=== PATIENT | female | born 2000 | race Caucasian/White ===

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

== ENCOUNTER → 2020-12-13 09:37 | Outpatient (BNVA) | payer MEDICAID, SELFPAY | PROVIDERS: Family Provider Nurse Practitioner; PCP Nurse Practitioner Family; Visit Provider Nurse Practitioner Family | DX: R22.31 Localized swelling, mass and lump, right upper limb (principal) | CPT/HCPCS: 73110 ==

== ENCOUNTER 2021-04-27 19:23 | Emergency (ER) | payer MEDICAID, SELFPAY ==
[2021-04-27 19:34] VITALS: BP 117/80; PULSE 109; RESP 16; TEMP 37; O2SAT 98
--- NOTE | 2021-04-27 19:48 | W.ED.SOB ---
Documented by User: FEDE Carroll 04/27/21 20:48 HPI - SOB/Dyspnea General: Chief Complaint: Shortness of Breath/Dyspnea Stated Complaint: Coughing, SOB, chest tightens up Time Seen by Provider: 04/27/21 19:47 History of Present Illness: HPI Narrative: Patient reports illness for the last 2 weeks. Patient has been treated with steroids, steroid inhaler, and albuterol along with a course of antibiotics. Patient has completed both the steroids and antibiotics but continues on her inhalers. Patient appears well. Patient appears no acute distress. Patient states that she continues to have episodes of coughing. Review of Systems General: Reports: 10 or more systems reviewed and unremarkable except in HPI and below Resp: Reports: non-productive cough PFSH ED PFSH: Social History Smoking and tobacco status: never smoked Alcohol intake: never History of recent travel: No Female Reproductive History: Date of last menstrual period: 10/05/19 Physical Exam Const: COMMON NORMALS: no acute distress and patient oriented x3 GENERAL APPEARANCE: cooperative HENMT: COMMON NORMALS: normocephalic, TM's normal bilaterally and Normal external nose present HEAD & SCALP: normal to inspection and normocephalic NOSE: Normal external nose present TYMPANIC MEMBRANE: TM's normal bilaterally MOUTH: Normal oral and palatal mucosa present THROAT: posterior oropharynx normal Eye: GENERAL EYE: appearance normal, both eyes and all related structures Neck/C-Spine: COMMON NORMALS: full ROM Lymph: LYMPHATIC: no lymphadenopathy noted Chest: COMMONS NORMALS: normal inspection of the chest Resp: COMMON NORMALS: normal respiratory effort and clear to auscultation bilaterally EFFORT & INSPECTION: Yes able to speak in complete sentences AUSCULTATION: clear to auscultation bilaterally Cardio: COMMON NORMALS: regular rate and regular rhythm RATE: regular rate RHYTHM: regular rhythm GI: COMMON NORMALS: non-tender Back/Pelvis: COMMON NORMALS: thoracic and lumbar spine normal to inspection Extremity: COMMON NORMALS: normal to inspection Neuro: COMMON NORMALS: patient oriented x3 and moves all extremities Psych: COMMON NORMALS: mental status grossly normal and cooperative Skin: COMMON NORMALS: no rashes or lesions noted GENERAL SKIN EXAM: no rashes or lesions noted Course Vital Signs: Vital signs: Vital Signs Temperature 98.6 F 04/27/21 19:34 Pulse Rate 118 H 04/27/21 20:30 Respiratory Rate 18 04/27/21 20:30 Blood Pressure 117/82 04/27/21 20:30 Pulse Oximetry 97 04/27/21 20:30 MDM - SOB/Dyspnea MDM Narrative: Medical decision making narrative: Patient comes in today for complaints of illness for last 2 weeks. Patient has been treated with steroids, antibiotics, and inhalers. On exam patient appears no acute distress. Patient appears well. Lungs are clear to auscultation. Differential diagnosis includes pneumonia, post viral cough, asthma. Chest x-ray was unremarkable. Believe the patient probably has post viral cough. Patient can continue with albuterol as needed in the steroid inhaler twice a day. Encourage plenty of fluids and follow-up with primary care in 2 weeks for recheck. Return to the ER for worsening symptoms or new concerns. Discharge Plan Discharge Patient Disposition: Home Clinical Impression: Bronchitis, Post-viral cough syndrome Condition: Stable Prescriptions: No Action amoxicillin 500 mg capsule 500 mg PO TID 10 Days Qty: 30 RF: 0 methylprednisolone [Medrol (Myles)] 4 mg tablets,dose pack See Rx Instructions PO PER PKG DIR Qty: 21 RF: 0 albuterol sulfate [ProAir HFA] 90 mcg/actuation HFA aerosol inhaler 2 puff inhalation QID PRN (Reason: shortness of breath or wheezing) Qty: 8.5 RF: 6 budesonide-formoterol [Symbicort] 160-4.5 mcg/actuation HFA aerosol inhaler 2 puff inhalation Q12H Qty: 10.2 RF: 6 prednisone 10 mg tablets,dose pack See Rx Instructions PO PER PKG DIR Qty: 21 RF: 0 28-800 mg-mcg Tablet 1 tab PO DAILY RF: 0 ibuprofen 800 mg Tablet 800 mg PO TID Qty: 45 RF: 0 Discharge Orders: Discharge ED (Routine); Ordered 04/27/21 Ordered By: Jorge A Solorzano Discharge Diet: Usual diet Discharge Activity: Increase activity as tolerated Patient Instructions: Acute Bronchitis (ED), Opioid Safety Activity Restrictions/Additional Instructions: Continue with inhalers as directed. Use albuterol as needed. Use the other inhaler routinely twice a day. Drink plenty of water with medication. Use acetaminophen or ibuprofen for discomfort. Make sure to rinse mouth thoroughly after the use of inhalers. Follow-up with primary care in 3 to 5 days for recheck. Return to the emergency department for new concerns or worsening symptoms. Coding Level of Care Code ED Baggage Inspector for Chg Fwd Exam Comprehensive Documented by User: Johnathan Hollins, 04/27/21 22:46 HPI - SOB/Dyspnea General: Chief Complaint: Shortness of Breath/Dyspnea Stated Complaint: Coughing, SOB, chest tightens up Time Seen by Provider: 04/27/21 19:47 PFSH ED PFSH: Social History Smoking and tobacco status: never smoked Alcohol intake: never History of recent travel: No Course Vital Signs: Vital signs: Vital Signs Temperature 98.6 F 04/27/21 19:34 Pulse Rate 118 H 04/27/21 20:30 Respiratory Rate 18 04/27/21 20:30 Blood Pressure 117/82 04/27/21 20:30 Pulse Oximetry 97 04/27/21 20:30 MDM - SOB/Dyspnea MDM Narrative: Medical decision making narrative: This patient was originally seen by FEDE Ruiz. I agree with his history, evaluation, and treatment. Discharge Plan Discharge Patient Disposition: Home Clinical Impression: Bronchitis, Post-viral cough syndrome Condition: Stable Prescriptions: No Action amoxicillin 500 mg capsule 500 mg PO TID 10 Days Qty: 30 RF: 0 methylprednisolone [Medrol (Myles)] 4 mg tablets,dose pack See Rx Instructions PO PER PKG DIR Qty: 21 RF: 0 albuterol sulfate [ProAir HFA] 90 mcg/actuation HFA aerosol inhaler 2 puff inhalation QID PRN (Reason: shortness of breath or wheezing) Qty: 8.5 RF: 6 budesonide-formoterol [Symbicort] 160-4.5 mcg/actuation HFA aerosol inhaler 2 puff inhalation Q12H Qty: 10.2 RF: 6 prednisone 10 mg tablets,dose pack See Rx Instructions PO PER PKG DIR Qty: 21 RF: 0 28-800 mg-mcg Tablet 1 tab PO DAILY RF: 0 ibuprofen 800 mg Tablet 800 mg PO TID Qty: 45 RF: 0 Discharge Orders: Discharge ED (Routine); Ordered 04/27/21 Ordered By: Jorge A Solorzano Discharge Diet: Usual diet Discharge Activity: Increase activity as tolerated Patient Instructions: Acute Bronchitis (ED), Opioid Safety Activity Restrictions/Additional Instructions: Continue with inhalers as directed. Use albuterol as needed. Use the other inhaler routinely twice a day. Drink plenty of water with medication. Use acetaminophen or ibuprofen for discomfort. Make sure to rinse mouth thoroughly after the use of inhalers. Follow-up with primary care in 3 to 5 days for recheck. Return to the emergency department for new concerns or worsening symptoms. Coding Level of Care Code ED Baggage Inspector for Samanta Raya Exam Comprehensive
--- NOTE | 2021-04-27 19:57 | XRR_ITS ---
PROCEDURE INFORMATION: Exam: XR Chest Exam date and time: 04/27/2021 7:57 PM Age: 20 years old Clinical indication: Cough; Additional info: Cough, congestion TECHNIQUE: Imaging protocol: XR of the chest. Views: 1 view. COMPARISON: No relevant prior studies available. FINDINGS: Lungs: Mild ground-glass opacity suspected in the left lung base. The right lung is clear. Pleural spaces: Unremarkable. No pleural effusion. No pneumothorax. Heart/Mediastinum: Unremarkable. No cardiomegaly. Bones/joints: Unremarkable. XR/XR chest 1V portable [id number] IMPRESSION: Suspected mild ground-glass opacity in the left base could represent pneumonia. Radiation Dose CTDIVOL = (mGy): DLP = (mGy-cm)
[2021-04-27 20:30] VITALS: BP 117/82; PULSE 118; RESP 18; O2SAT 97
== END 2021-04-27 20:59 | disposition home or self-care (01) ==
PROVIDERS: Emergency Provider Nurse Practitioner Family
DX: J40 Bronchitis, not specified as acute or chronic (principal); G93.3 Postviral and related fatigue syndromes
CPT/HCPCS: 71045; 99282

== ENCOUNTER 2021-06-22 00:59 | Emergency (ER) | payer MEDICAID, SELFPAY ==
[2021-06-22 01:20] VITALS: BP 114/75; PULSE 61; RESP 18; TEMP 36.8; O2SAT 97; BMI 26.6
[2021-06-22 02:28] LABS: Urine Appearance Clear (CLEAR); Urine Color Orange (Yellow)
[2021-06-22 02:29] LABS: Add Urine Microscopic? YES
[2021-06-22 02:31] LABS: RBC Urine 25-40 /hpf (0-2)
[2021-06-22 02:32] LABS: Add Urine Culture? Yes; Bacteria Urine 4+ /hpf; WBC Urine >100 /hpf (0-5)
[2021-06-22 03:16] VITALS: RESP 18
[2021-06-22] MEDS: oxyCODONE-APAP 5-325 mg Tablet 2 TAB PO (03:16)
[2021-06-22] MEDS: sulfamethoxazole-trimeth DS 160-800 mg Tablet 1 TAB PO (03:17)
[2021-06-22 03:18] VITALS: RESP 18
--- NOTE | 2021-06-22 08:01 | ED_ITS ---
HPI - Female Genitourinary General: Chief complaint: Urogenital-Female Stated complaint: UTI Time Seen by Provider: 06/22/21 02:41 Source: patient History of Present Illness: 20-year-old female patient complains of a few days of dysuria, low back pain, now stretching up into her left flank. She denies fever vomiting. MD elicited complaint: dysuria, UTI , back pain and flank pain Onset (ago): day(s) Location of symptoms: suprapubic, low back and flank Severity: moderate Quality of pain: cramping and stabbing Consistency: constant Vaginal discharge: none Vaginal bleeding: none and other (Finished her period yesterday ) Urinary symptoms: Difficulty Urinating, Dysuria, Flank Pain and Frequency Relieving factors: none Associated symptoms: Reports abdominal pain; Deny short of breath, fevers/chills, headache(s), nausea, vaginal bleeding or vaginal discharge Date of Last Menstrual Period: 06/16/21 Review of Systems Const: Denies: fever(s) or chills Card: Denies: chest pain Resp: Denies: dyspnea GI: Reports: abdominal pain; Denies: nausea, vomiting or diarrhea : Reports: flank pain; Denies: vaginal discharge Musc: Reports: back pain Neuro: Denies: headache(s) PFSH ED PFSH: Social History Smoking and tobacco status: never smoked Alcohol intake: never History of recent travel: No Female Reproductive History: Date of last menstrual period: 06/16/21 Physical Exam Const: COMMON NORMALS: no acute distress GENERAL APPEARANCE: cooperative and comfortable HENMT: COMMON NORMALS: normocephalic HEAD & SCALP: normocephalic FACE & SINUS: normal facial exam Eye: COMMON NORMALS: Equal, round and reactive pupils present and EOMs intact bilaterally PUPIL: Yes Equal, round and reactive pupils present Resp: COMMON NORMALS: normal respiratory effort, No use of accessory muscles and clear to auscultation bilaterally AUSCULTATION: clear to auscultation bilaterally Cardio: COMMON NORMALS: regular rate and regular rhythm RATE: regular rate RHYTHM: regular rhythm GI: COMMON NORMALS: Normal to inspection, nondistended, normoactive bowel sounds present and Soft to palpation PALPATION: Yes Soft to palpation : BLADDER/KIDNEY EXAM: Yes CVA tenderness on the left SPECULUM EXAM - VAGINA: No vaginal bleeding OB/EXTERNAL & SPECULUM: No vaginal bleeding Back/Pelvis: GENERAL BACK: Yes CVA tenderness Neuro: COLIN COMA SCALE: document [facility]CS findings [place] coma scale eye opening: Spontaneous [place] coma scale verbal response: Orientated [place] coma scale motor response: Obey commands Colin coma scale total score: 15 Course Vital Signs: Vital signs: Vital Signs Temperature 98.3 F 06/22/21 01:20 Pulse Rate 61 06/22/21 01:20 Respiratory Rate 18 06/22/21 03:18 Blood Pressure 114/75 06/22/21 01:20 Pulse Oximetry 97 06/22/21 01:20 MDM - Female Medical Decision Making Suprapubic pain radiating up into the flank on the left side and into her back. No vomiting. No fever. She has some blood in her urine on urinalysis, but she just finished her period yesterday. She has significant bacteriuria with leukocytes. She will be treated for a urinary tract infection/early pyelonephritis She was told to return if she worsens Lab Data Laboratory Results Urine Color [place] (Yellow) 06/22/21 01:25 Urine Appearance Clear (CLEAR) 06/22/21 01:25 Urine pH Not Reportable 06/22/21 01:25 Ur Specific [place] Not Reportable 06/22/21 01:25 Urine Protein Not Reportable 06/22/21 01:25 Urine Glucose (UA) Not Reportable 06/22/21 01:25 Urine Ketones Not Reportable 06/22/21 01:25 Urine Blood Not Reportable 06/22/21 01:25 Urine Nitrate Not Reportable 06/22/21 01:25 Urine Bilirubin Not Reportable 06/22/21 01:25 Urine Urobilinogen Not Reportable 06/22/21 01:25 Ur Leukocyte Esterase Not Reportable 06/22/21 01:25 Urine RBC 25-40 /hpf (0-2) H 06/22/21 01:25 Urine WBC >100 /hpf (0-5) H 06/22/21 01:25 Ur Squamous Epith Cells 5-10 /hpf (0-5) H 06/22/21 01:25 Amorphous Sediment Not Reportable 06/22/21 01:25 Urine Bacteria 4+ /hpf (NONE) H 06/22/21 01:25 Urine HCG, Qual Negative (Negative) 06/22/21 01:25 Discharge Plan Discharge Patient Disposition: Home Clinical Impression: Pyelonephritis Condition: Stable Prescriptions: New Bactrim DS 800-160 mg tablet 1 tab PO BID 7 Days Qty: 14 0RF hydrocodone-acetaminophen 5-325 mg tablet 1 tab PO Q8H PRN (Reason: pain) Qty: 7 0RF Zofran 4 mg tablet 4 mg PO Q6H PRN (Reason: nausea and vomiting) Qty: 10 0RF No Action amoxicillin 500 mg capsule 500 mg PO TID 10 Days Qty: 30 0RF methylprednisolone [Medrol (Myles)] 4 mg tablets,dose pack See Rx Instructions PO PER PKG DIR Qty: 21 0RF Rx Instructions: PO PER PKG DIR albuterol sulfate [ProAir HFA] 90 mcg/actuation HFA aerosol inhaler 2 puff inhalation QID PRN (Reason: shortness of breath or wheezing) Qty: 8.5 6RF budesonide-formoterol [Symbicort] 160-4.5 mcg/actuation HFA aerosol inhaler 2 puff inhalation Q12H Qty: 10.2 6RF prednisone 10 mg tablets,dose pack See Rx Instructions PO PER PKG DIR Qty: 21 0RF Rx Instructions: PO PER PKG DIR 28-800 mg-mcg Tablet 1 tab PO DAILY 0RF ibuprofen 800 mg Tablet 800 mg PO TID Qty: 45 0RF Discharge Orders: Discharge ED (Routine); Ordered 06/22/21 Ordered By: Johnathan Hollins Patient Instructions: Pyelonephritis Activity Restrictions/Additional Instructions: Return for fever greater than 100 despite 2-3 doses of antibiotics, worsening pain despite treatment, vomiting liquids or medications, blood in the urine, any other concerning symptoms. Coding Level of Care Code ED Tool Clerk for Samanta Raya
== END 2021-06-22 03:19 | disposition home or self-care (01) ==
PROVIDERS: Physician Assistant; Emergency Provider Emergency Medicine
DX: N12 Tubulo-interstitial nephritis, not specified as acute or chronic (principal)
CPT/HCPCS: 81001; 81025; 87077; 87086; 87186; 99283

== ENCOUNTER 2022-04-28 01:21 | Inpatient (IN) | payer MEDICAID, SELFPAY ==
[2022-04-28] VITALS (81 sets, daily range): BP systolic 92–134; BP diastolic 47–79; PULSE 59–100; RESP 15–17; TEMP 36.4–36.8; O2SAT 94–100; BMI 29.0
[2022-04-28] MEDS: miSOPROStol 100 mcg tablet 25 MCG SUBLINGUAL ×2 (01:39→06:27)
[2022-04-28 01:51] LABS: Basophils % 0.2 %; Eosinophils # 0.1 10^3/uL (0.0-0.8); Eosinophils % 0.5 %; Hematocrit 28.7 % (37.0-47.0); Hemoglobin 8.9 g/dL (11.5-15.3); Lymphocytes # 1.8 10^3/uL (0.8-4.8); Lymphocytes % 18.5 %; Mean Platelet Volume 10.2 fL (7.4-10.4); Monocytes # 0.4 10^3/uL (0.2-0.9); Monocytes % 4.4 %; Neutrophils # 7.49 10^3/uL (1.8-7.7); Neutrophils % 75.9 %; Nucleated Red Blood Cells % 0 %; Platelet Count 291 10^3/cmm (130-400); Red Cell Distribution Width 13.9 % (12.1-15.1); White Blood Count 9.9 10^3/uL (4.0-10.0)
[2022-04-28] MEDS: lactated ringers 1,000 ML 999 ML IV ×2 (10:30→10:37)
[2022-04-28] MEDS: dextrose 5%-lactated ringers 1,000 ML 125 ML IV (12:37)
--- NOTE | 2022-04-28 13:59 | P.PCNOB_ITS ---
Delivery Note: Date of delivery: April 28, 2022 Pre-delivery diagnoses: 21-year-old 2 para 1-0-0-1 at 38 weeks estimated gestational age presenting with spontaneous rupture of membranes Post-delivery diagnoses: Status post spontaneous vaginal delivery Procedure: Spontaneous vaginal delivery Delivering Physician: Aaron Colbert Estimated blood loss (mL): 100 Pre-Delivery Course: The patient presented to the hospital with spontaneous rupture of membranes. The rupture membranes was presumed to have occurred just before arriving at the hospital. She was having infrequent contractions and had an unfavorable cervix. She was placed on Cytotec 25 mcg per vagina x2 every 4 hours she later had epidural placed. She progressed to complete without difficulty. Delivery: DELIVERY: The patient progressed to complete without difficulty. She delivered a male with a weight of 6 pounds 14 ounces with Apgars of 8, 9. The baby was delivered from the AIDEN position and placed on the mother's abdomen. The mouth and nose were then suctioned shortly after delivery. The cord was then clamped and cut. There was a nuchal cord x2 which were easily reduced prior to delivery of the shoulder there was no meconium. The placenta and 3 vessel cord were delivered intact shortly thereafter. The perineum and vaginal vault were carefully examined. No lacerations were noted. Both the mother and the baby were in stable condition. Post-Delivery Status: Good A&P Assessment and plan (1) 38 weeks gestation of : I anticipate routine care. Mother desires to breast-feed. (2) Spontaneous vaginal delivery: Coding Level of Care Code Acute Submarine Element Coordinator for Chg Fwd Diagnoses 38 weeks gestation of Z3A.38 Spontaneous vaginal delivery O80
--- NOTE | 2022-04-28 13:59 | PM.OPHPUD ---
Labor & Delivery H&P Update Date of Procedure: April 28, 2022 Date H&P Performed: 04/27/22 Changes to previous documentation: Spontaneous rupture of membranes Admission Diagnosis: 21-year-old 2 para 1-0-0-1 at 38 weeks estimated gestational age presenting with spontaneous rupture membranes Preop diagnosis: IUP Other information: Patient had an unremarkable overall. She arrived to the hospital spontaneous rupture of membranes. Her labs were as follows her blood type was her antibody screen was negative. She is rubella nonimmune. She was GBS negative. She passed her glucose screen. The remainder of her infectious disease profile was within normal limits.
--- NOTE | 2022-04-28 13:59 | ANES.PREANE2 ---
Pre-Anesthetic Assessment Height/Weight: Height 1.73 m Weight 86.636 kg Pulse Resp BP Pulse Ox O2 Del Method 97 15 110/55 100 04/28/22 13:45 04/28/22 02:13 04/28/22 13:45 04/28/22 10:52 04/28/22 05:48 Preop Diagnosis: IUP Familial anesthetic complications: none Was Beta Suzanne taken within 24 hours: N/A Was Clonidine taken within 24 hours: N/A Social No alcohol and No tobacco Exam alert, oriented x 3, clear to auscultation bilaterally and regular rate & rhythm Airway Submandibular: within normal limits Cervical ROM: within normal limits Mallampati: Class II Dentition: full History/ROS No significant history except as noted Anesthetic Plan ASA status: 2 Anesthesia: Regional (specify below) (Labor epidural) Medications/Allergies Home Medications Medication Instructions Recorded Confirmed Last Taken Type vit no.133-ferrous 1 tab PO DAILY 07/13/19 04/28/22 04/27/22 09:00 History fumarate 28 mg-folic acid 800 mcg tablet () Allergies Allergy/AdvReac Type Severity Reaction Status Date / Time No Known Drug Allergies Allergy Unknown Verified 04/28/22 04:07 Current Medications Generic Name Dose Route Start Last Admin Trade Name Freq PRN Reason Stop Dose Admin Dextrose/Lactated Ringer's 1,000 mls @ 125 mls/hr 04/28/22 01:20 04/28/22 12:37 Dextrose 5%-Lactated Ringers IV 125 mls/hr .Q8H PRN Administration labor Ropivacaine 200 mg in 100 mls @ 13 mls/hr 04/28/22 09:30 04/28/22 10:37 Naropin Premix EPIDURAL 13 mls/hr .Q7H42M NUVIA Administration Lactated Ringer's 1,000 mls @ 999 mls/hr 04/28/22 09:29 04/28/22 10:37 Lactated Ringers IV 999 mls/hr .Q1H1M PRN Administration See label comments PFSH Anesthesia Social History Smoking and tobacco status: never smoked Alcohol intake: never History of recent travel: No Female Reproductive History Date of last menstrual period: 06/16/21 : 2 Data Anesthesia 04/28/22 01:31 Short CBC 04/28/22 Range/Units 01:31 WBC 9.9 (4.0-10.0) 10^3/uL Hgb 8.9 L (11.5-15.3) g/dL Hct 28.7 L (37.0-47.0) % MCV 87.0 (81-99) fl Plt Count 291 (130-400) 10^3/cmm Neut % (Auto) 75.9 % Neut # (Auto) 7.49 (1.8-7.7) 10^3/uL Cardiac Studies: No Data to Display Anesthesia Procedures Epidural Time Out Performed: Yes Consents Signed: Procedure Consent Consent: requested by attending/covering physician, from patient, risks and benefits reviewed and patient agrees to proceed Lumbar Level: L3-L4 Epidural position: sitting Epidural procedure: sterile prep of area, 1% lidocaine to numb the area, 18 g needle, neg for paresthesia, test dose given, 1.5% xylocaine 1:200k epi, placed PCEA, no systemic response, sterile dressing applied and 0.2% Ropiavacaine @ mls/hr (13) Additional Comments: CÉSAR @ 5cm, Cath @ 10cm, bolused 5mls of 2% lido PF
[2022-04-28] MEDS: ibuprofen 800 mg tablet PO ×2 (16:31→21:05)
[2022-04-29 03:05] LABS: Hematocrit 28.7 % (37.0-47.0); Hemoglobin 8.6 g/dL (11.5-15.3); Mean Corpuscular Hemoglobin 26.5 pg (28.0-34.0); Mean Corpuscular Volume 88.3 fl (81-99); Mean Platelet Volume 9.9 fL (7.4-10.4); Platelet Count 270 10^3/cmm (130-400); Red Blood Count 3.25 10^6/uL (4.1-5.3); Red Cell Distribution Width 14.1 % (12.1-15.1)
[2022-04-29 04:00] VITALS: BP 105/61; PULSE 66; RESP 17; TEMP 36.7; O2SAT 98
--- NOTE | 2022-04-29 07:58 | PM.OBGYDC ---
Discharge Providers [employer] [employer] Date of Admission: 04/28/22 01:21 Date of Discharge: 05/03/22 Attending Provider at Admission: Aaron Colbert MD Attending Provider at Discharge: Aaron Colbert MD Diagnoses at Discharge Discharge Diagnosis (1) 38 weeks gestation of : Status: Resolved (2) Spontaneous vaginal delivery: Status: Resolved Reason for Visit Reason for Visit: Poss SROM Hospital Course Hospital Course The patient presented to the hospital with spontaneous rupture of membranes she is placed on Cytotec 25 mcg x 2. An epidural was placed. She progressed to complete without difficulty. She had an unremarkable delivery of a healthy-appearing . Her course was also unremarkable. Her bleeding was within normal limits. Her pain was well controlled. Information Peripartum Data: Delivery Method: Vaginal Physical Exam Narrative: The patient is alert. She appears comfortable. Her heart has a regular rate and rhythm with no murmurs appreciated. Lungs are clear to auscultation bilaterally. Her fundus is firm and below the umbilicus. Urinary Catheter Management: Larose Latex: Cath Placed During This Visit: yes Urinary Catheter Date of Insertion: 04/28/22 Urinary Catheter Time of Insertion: : Discharge Data Studies Completed and Pending Laboratory Results WBC 11.0 10^3/uL (4.0-10.0) H 04/29/22 02:52 RBC 3.25 10^6/uL (4.1-5.3) L 04/29/22 02:52 Hgb 8.6 g/dL (11.5-15.3) L 04/29/22 02:52 Hct 28.7 % (37.0-47.0) L 04/29/22 02:52 MCV 88.3 fl (81-99) 04/29/22 02:52 MCH 26.5 pg (28.0-34.0) L 04/29/22 02:52 MCHC 30.0 g/dL (30.0-36.0) 04/29/22 02:52 RDW 14.1 % (12.1-15.1) 04/29/22 02:52 Plt Count 270 10^3/cmm (130-400) 04/29/22 02:52 MPV 9.9 fL (7.4-10.4) 04/29/22 02:52 Neut % (Auto) 75.9 % 04/28/22 01:31 Lymph % (Auto) 18.5 % 04/28/22 01:31 [place] % (Auto) 4.4 % 04/28/22 01:31 Eos % (Auto) 0.5 % 04/28/22 01:31 Baso % (Auto) 0.2 % 04/28/22 01:31 Neut # (Auto) 7.49 10^3/uL (1.8-7.7) 04/28/22 01:31 Lymph # (Auto) 1.8 10^3/uL (0.8-4.8) 04/28/22 01:31 [place] # (Auto) 0.4 10^3/uL (0.2-0.9) 04/28/22 01:31 Eos # (Auto) 0.1 10^3/uL (0.0-0.8) 04/28/22 01:31 Baso # (Auto) 0.0 10^3/uL (0.0-0.1) 04/28/22 01:31 Nucleated RBC % (auto) 0 % 04/28/22 01:31 Nucleated RBCs # 0.0 /100WBC 04/28/22 01:31 Vitals Last Vital Signs Temp 98.0 F 04/29/22 04:00 Pulse 66 04/29/22 04:00 Resp 17 04/29/22 04:00 BP 105/61 04/29/22 04:00 Pulse Ox 98 04/29/22 04:00 O2 Del Method 04/29/22 04:00 Discharge Plan Discharge Patient Disposition: Home Condition: Stable Prescriptions: New ibuprofen 800 mg Tablet 800 mg PO TID Qty: 45 0RF Iron (ferrous sulfate) 325 mg (65 mg iron) tablet 325 mg PO DAILY Qty: 30 0RF Rx Instructions: Take with vitamin C separate from meal Continued 28-800 mg-mcg Tablet 1 tab PO DAILY Discharge Orders: Discharge Order (Routine); Ordered 04/29/22 Ordered By: Aaron Colbert Referrals: Aaron Colbert MD [Physician] - 06/11/22 12:15 pm (* Your 6 week appointment is on 06/11/2022 at 12:15pm) Discharge Diet: Usual diet Discharge Activity: Limit activity as instructed Patient Instructions: Depression (GEN), Perineal Care (GEN), Bleeding (GEN), Preeclampsia and Eclampsia After Delivery (GEN), OB Food/Drug Interaction Guide, OB Home Care Instructions, OB Care at Home, Opioid Safety, OB Home Care, OB Vaginal Deliveries Discharge Attestations [employer] Time Spent in Discharge Care*: less than 30 min Coding Level of Care Code Acute Senior Medical Billing Specialist for Chg Fwd Diagnoses 38 weeks gestation of Z3A.38 Spontaneous vaginal delivery O80
[2022-04-29 09:45] VITALS: BP 115/70; PULSE 70; RESP 17; TEMP 36.7; O2SAT 98
--- NOTE | 2022-04-29 09:55 | ANE.PACU2 ---
Inpatient post-anesthesia follow up: Airway intact: Yes Vital signs: Temperature 98.0 F Pulse Rate 66 Respiratory Rate 17 Blood Pressure 105/61 Pulse Oximetry 98 Oxygen Delivery Me thod Room Air Oxygen Flow Rate Fraction of Inspir ed Oxygen Hydration adequate: Yes Nausea and vomiting: No Pain level: 2 Mental status: Baseline
[2022-04-29] MEDS: docusate sodium 100 mg Capsule PO (10:19)
[2022-04-29] MEDS: ibuprofen 800 mg tablet PO (10:19)
[2022-04-29] MEDS: prenatal vitamin Capsule 1 CAP PO (10:20)
[2022-04-29 16:00] VITALS: BP 108/64; PULSE 73; RESP 17; O2SAT 98
[2022-04-29 16:15] VITALS: BP 108/64; PULSE 73; RESP 17; O2SAT 98
== END 2022-04-29 16:20 | disposition home or self-care (01) | DRG 807 ==
LOC: OPOB 09:04 → OBGYN 09:04
PROVIDERS: Admitting Provider Family Medicine; Visit Provider Family Medicine
DX: O69.1XX0 Labor and delivery complicated by cord around neck, with compression, not applicable or unspecified (principal); Z37.0 Single live birth; Z3A.38 38 weeks gestation of pregnancy
CPT/HCPCS: 12345; 36415; 51702; 59025; 59409; 83986; 85025; 85027; 98960; 99211; J2795; J7120; J7121

== ENCOUNTER → 2025-03-18 11:29 | Outpatient (BNVA) | payer MEDICAID, SELFPAY | PROVIDERS: Visit Provider Emergency Medicine | DX: J02.9 Acute pharyngitis, unspecified (principal) | CPT/HCPCS: 87071; 87880 ==